=== PATIENT | female | born 1960 | race Caucasian/White ===

== ENCOUNTER 2016-09-27 08:44 | Day surgery (SDC) | payer OTHER ==
[2016-09-25 18:43] LABS: HEMOGLOBIN 11.5 g/dL (12.0-16.0)
[2016-09-25 18:48] LABS: HEMATOCRIT 33.7 % (36.0-48.0)
--- NOTE | ~2016-09-27 | OP ---
Record Of Operation [facility] [address] [place]. [address] NAME: VANDANA GRIMES : 64 STATUS : [facility]#: [id number] AGE: 55 ADM/REG DATE : 09/27/16 MR#: [id number] REPORT SERV DATE: 11/14/16 DICTATED BY: PAUL RODRIGUEZ JR. DATE: 09/27/16 REPORT STATUS : Draft TRANSCRIBED BY: JEWELS DATE: 09/27/16 DATE OF PROCEDURE: REASON FOR SURGERY: This 55-year-old patient presents with a biopsy-proven malignancy of the left breast. It is 1 cm in size and has had some complicated issues on mammogram that had been worked through but this remains a T1b N0 M0 malignancy. It is hormone negative and her2 positive. General consensus in this heavy smoker but otherwise healthy patient is to go ahead with neoadjuvant chemotherapy. PREOPERATIVE DIAGNOSIS: Carcinoma, right breast. POSTOPERATIVE DIAGNOSIS: Carcinoma, left breast. SURGEON: Paul Rodriguez M.D. SURGERY PERFORMED: Insertion of venous port. DESCRIPTION OF PROCEDURE: With Anesthesia support, the patient was prepped and draped in supine position in the usual sterile fashion. 1% Xylocaine was used to anesthetize the base of the right neck. The needle and wire were inserted into the vein to the internal jugular vein without difficulty. The port site was that then created on the chest wall after anesthetizing. The catheter was tunneled to the port site and the system was assembled, aspirated, flushed and secured to the chest wall with Prolene. Final fluoroscopy revealed correct positioning of the catheter tip with no kinking or notching. The wounds were irrigated. Hemostasis was obtained. The neck wound was closed with a single 4-0 Monocryl and surgical glue. The port site was closed in the usual fashion with two layers of Monocryl and surgical glue. External access device was applied and sterile dressing was applied. The patient tolerated the procedure well without complication. ESTIMATED BLOOD LOSS: Less than 5 mL. SPONGE COUNT: Correct. /JEWELS Paul Rodriguez Jr., M.D. / [id number] Record Of Operation [place] [place] [id number] [place]. [address] NAME: VANDANA GRIMES : 64 STATUS : [facility]#: [id number] AGE: 55 ADM/REG DATE : 09/27/16 MR#: [id number] REPORT SERV DATE: 11/14/16 DICTATED BY: PAUL RODRIGUEZ JR. DATE: 09/27/16 REPORT STATUS : Draft TRANSCRIBED BY: JEWELS DATE: 09/27/16 CC: Melecio Parsons Jr., M.D. Phyllis Miller, M.D. [facility]
[~2016-09-27 08:44] MED LIST: ADDER10 PO; ROXICODONE15 MG PO; V2 PO
[2017-03-07] MEDS ORDERED: PRENAVITE PO (11:37)
[2017-03-07] MEDS ORDERED: PROAIR HFA INH (11:39)
== END 2016-09-27 12:45 | disposition home or self-care (01) ==
LOC: SDC 08:44
PROVIDERS: Surgery Surgical Oncology
PROC: 05HM33Z Insertion of Infusion Device into Right Internal Jugular Vein, Percutaneous Approach (ICD-10-PCS; 2016-09-27)
PROC: B513YZA Fluoroscopy of Right Jugular Veins using Other Contrast, Guidance (ICD-10-PCS; 2016-09-27)
PROC: 0JH60XZ Insertion of Tunneled Vascular Access Device into Chest Subcutaneous Tissue and Fascia, Open Approach (ICD-10-PCS; principal; 2016-09-27 09:45)
DX: C50.912 Malignant neoplasm of unspecified site of left female breast (principal); J44.9 Chronic obstructive pulmonary disease, unspecified; M06.9 Rheumatoid arthritis, unspecified; F41.9 Anxiety disorder, unspecified; F32.9 Major depressive disorder, single episode, unspecified; F90.9 Attention-deficit hyperactivity disorder, unspecified type; E03.9 Hypothyroidism, unspecified; Z90.89 Acquired absence of other organs; Z98.51 Tubal ligation status; Z90.49 Acquired absence of other specified parts of digestive tract; Z79.891 Long term (current) use of opiate analgesic; Z79.899 Other long term (current) drug therapy
CPT/HCPCS: 71010; 85014; 85018; 93005; C1751; J0690; J2250; J3010